=== PATIENT | female | born 1975 | race Caucasian/White ===

== ENCOUNTER → 2017-01-25 | Outpatient (REF) ==
[~2017-01-25] MED LIST: CEPA0.1S MT; IBUP80TA PO; NYQUIL PO; PRED10TA PO; PRED1TAB32 PO
== END ==
LOC: M LAB 13:10
PROVIDERS: ATTEND Nurse Practitioner Adult Health
DX: Z00.00 Encounter for general adult medical examination without abnormal findings (principal)

== ENCOUNTER → 2018-07-05 | Outpatient (CLI) | payer SELFPAY ==
--- NOTE | 2018-07-05 19:21 | REP ---
Soft tissue neck four views History: Left neck mass The cervical spine is visualized from C1 to the C5-6 level on the lateral radiographs. There is no acute fracture or subluxation. The intervertebral discs are normal in height. Soft tissues of the neck are normal in appearance. Impression: There is no acute fracture or subluxation. Electronically Signed by Chris Hall MD 07/05/2018 07:12 P
== END ==
LOC: M WUC 18:49
PROVIDERS: ATTEND Physician Assistant
DX: R22.1 Localized swelling, mass and lump, neck (principal)